=== PATIENT | male | born 1940 | race Caucasian/White ===

== ENCOUNTER 2022-01-31 20:38 | Inpatient (IN) | payer MEDICARE ==
[~2022-01-31] VITALS: Ht 175.3 cm; Wt 95.3 kg
--- NOTE | 2022-01-31 20:40 | NUR ---
Dr Ferrera at bedside, MSE in progress
[2022-01-31 21:51] LABS: HEMATOCRIT 42.5 % (36.7-47.1); MEAN CORPUSCULAR HEMOGLOBIN 27.9 uug (23.8-33.4); MEAN CORPUSCULAR VOLUME 86.4 fL (73.0-96.2); PLATELET COUNT (AUTO) 200 K/uL (152-348)
[2022-01-31 22:28] LABS: ALANINE AMINOTRANSFERASE 32 U/L (16-63); ALKALINE PHOSPHATASE 72 U/L (50-136); ASPARTATE AMINOTRANSFERASE 17 U/L (15-37); BILIRUBIN,DIRECT 0.1 mg/dL (0.0-0.2); BILIRUBIN,TOTAL 0.5 mg/dL (0.2-1.0); CARBON DIOXIDE 28 mmol/L (21-32); CHLORIDE 102 mmol/L (98-107); CREATININE 1.1 mg/dL (0.6-1.3); GLUCOSE 130 mg/dL (74-106); LIPASE 72 U/L (73-393); POTASSIUM 3.9 mmol/L (3.5-5.1); TOTAL PROTEIN, SERUM 7.4 g/dL (6.4-8.2); UREA NITROGEN, BLOOD 19 mg/dL (7-18)
[2022-02-01 00:56] LABS: ABG BASE EXCESS -0.3 mmol/L; ABG HCO3 23.9 mmol/L; ABG PCO2 37.6 mmHg (35.0-45.0); ABG PH 7.421 (7.350-7.450); ABG PO2 77.3 mmHg (75.0-100.0); ABG SITE RIGHT RADIAL; ABG TOTAL HEMOGLOBIN 14.2 G/dL (13.5-18.0); MetHb 0.1 % (0.0-1.5); VENT MODE BIPAP
[2022-02-01] MEDS ORDERED: OSELTAMIVIR PHOSPHATE 75 MG CAPSULE PO ONE (01:00)
[2022-02-01] MEDS ORDERED: ONDANSETRON 4 MG/2 ML VIAL IV PRN (01:00)
[2022-02-01] MEDS ORDERED: MORPHINE SULFATE 2 MG/1 ML DISP.SYRIN IV PRN (01:00)
[2022-02-01] MEDS ORDERED: ALBUTEROL SULFATE 8 GM HFA.AER.AD IH PRN (01:00)
[2022-02-01] MEDS ORDERED: hydrALAZINE HCL 20 MG/1 ML VIAL IV PRN (01:00)
[2022-02-01] MEDS ORDERED: ACETAMINOPHEN 325 MG TABLET PO PRN (01:00)
[2022-02-01] MEDS ORDERED: methylPREDNISolone SOD SUCC 125 MG/2 ML VIAL ONE (03:13)
[2022-02-01] MEDS ORDERED: methylPREDNISolone SOD SUCC 125 MG/2 ML VIAL IV ONE (03:15)
[2022-02-01] MEDS ORDERED: ALBUTEROL SULFATE 2.5 MG/3 ML NEBU NEB ONE ×2 (03:15→03:45)
[2022-02-01] MEDS ORDERED: IPRATROPIUM BROMIDE 0.5 MG/2.5 ML NEBU NEB ONE ×2 (03:15→03:45)
[2022-02-01] MEDS ORDERED: ALBUTEROL SULFATE 2.5 MG/3 ML NEBU NEB PRN (05:30)
--- NOTE | 2022-02-01 07:00 | NUR ---
RECEIVED PATIENT ON O2 AT 3L NC SATURATING 93-95% NO SS OF DISTRESS. FIB FLUTER ON MONITOR. CONTINUE WITH TELE MONITORING
--- NOTE | 2022-02-01 07:25 | NUR ---
ADMITTED PT TO ROOM 310; placed on droplet precaution; Bipap in situ per RT; placed on continuous pulse ox and sats 94%; incontinence care done; per DATABASE DESIGN ANALYST, family will bring home meds; MRSA swab done and sent to lab; plan of care initiated; continue to monitor.
[2022-02-01] MEDS: methylPREDNISolone SOD SUCC 40 MG/ML VIAL IV SCH ×2 (08:34→16:36)
[2022-02-01] MEDS: FLUTICASONE/VILANTEROL 1 EACH BLST.W.DEV INH SCH (08:38)
[2022-02-01] MEDS: OSELTAMIVIR PHOSPHATE 75 MG CAPSULE PO SCH ×2 (08:38→16:36)
[2022-02-01] MEDS ORDERED: HEPARIN SODIUM,PORCINE 5,000 UNITS/ML VIAL SQ SCH (09:00)
[2022-02-01] MEDS ORDERED: DONE10TA11 PO (10:12)
[2022-02-01] MEDS ORDERED: FURO-152 PO ×2 (10:12→10:21)
[2022-02-01] MEDS ORDERED: ROSU10TA2 PO (10:12)
[2022-02-01] MEDS ORDERED: METO100T7 PO (10:12)
[2022-02-01] MEDS ORDERED: UBID100C13 PO (10:12)
[2022-02-01] MEDS ORDERED: DUTA0.5C PO (10:12)
[2022-02-01] MEDS ORDERED: APIX5TAB PO (10:12)
[2022-02-01] MEDS ORDERED: BENA40TA8 PO (10:12)
[2022-02-01] MEDS ORDERED: CHOL200013 PO (10:15)
[2022-02-01] MEDS ORDERED: SERT100T PO (10:15)
[2022-02-01] MEDS ORDERED: SPIR25TA PO (10:15)
[2022-02-01] MEDS ORDERED: TAMS-3 PO (10:15)
[2022-02-01] MEDS ORDERED: ACET-2154 PO (10:18)
[2022-02-01] MEDS ORDERED: TRAZ-182 PO (10:18)
[2022-02-01] MEDS ORDERED: CICL15CR12 TP (10:18)
[2022-02-01] MEDS ORDERED: POTA-10 PO (10:18)
[2022-02-01] MEDS ORDERED: PHEN26CR2 RC (10:21)
[2022-02-01] MEDS ORDERED: LOPE2CAP PO (10:21)
[2022-02-01] MEDS ORDERED: ACET-73 PO (10:21)
[2022-02-01] MEDS ORDERED: NEOM1OIN19 TP (10:23)
[2022-02-01] MEDS ORDERED: GUAI-755 PO (10:23)
[2022-02-01] MEDS ORDERED: PROP10DR2 OP (10:23)
[2022-02-01 11:31] VITALS: BP 152/77
--- NOTE | 2022-02-01 12:00 | NUR ---
NO ACUTE CHANGE FROM MORNING ASSESSMENT
[2022-02-01] MEDS: FUROSEMIDE 20 MG TABLET PO SCH (12:28)
[2022-02-01] MEDS: CHOLECALCIFEROL 1,000 UNIT TABLET PO SCH (12:28)
[2022-02-01] MEDS: TAMSULOSIN HCL 0.4 MG CAP.SR.24H PO SCH (12:28)
[2022-02-01] MEDS: SERTRALINE HCL 100 MG TABLET PO SCH (12:28)
[2022-02-01] MEDS: SPIRONOLACTONE 25 MG TABLET PO SCH (12:28)
[2022-02-01] MEDS: DONEPEZIL 10 MG TABLET PO SCH (12:28)
[2022-02-01] MEDS: BENAZEPRIL HCL 20 MG TABLET PO SCH (12:28)
[2022-02-01] MEDS: DUTASTERIDE 0.5 MG CAPSULE PO SCH (12:28)
[2022-02-01] MEDS: APIXABAN 5 MG TABLET PO SCH ×2 (12:29→16:37)
[2022-02-01] MEDS: GLUCERNA SHAKE 237 ML CAN PO SCH ×2 (12:29→16:38)
[2022-02-01] MEDS: METOPROLOL SUCCINATE XL 50 MG TAB.SR.24H PO SCH (12:46)
--- NOTE | 2022-02-01 13:42 | NUR ---
WOUND CARE CONSULT: REVIEWED CHART, NURSING DOCUMENTATION AND PHOTO WHICH INDICATES SACRAL INTACT DEEP TISSUE INJURY AND RASH TO INNER BUTTOCKS, PRESENT ON ADMISSION. RECOMMENDATIONS MADE FOR SKIN PROTECTION. DISCUSSED WITH NURSING STAFF. MD IN AGREEMENT WITH PLAN OF CARE.
[2022-02-01] MEDS ORDERED: REMEDY ESSENTIAL ZINC PASTE 113 GM TOP PRN (13:45)
[2022-02-01] MEDS: CLOTRIMAZOLE 1% CREAM 30 GM TUBE TOP SCH (16:36)
[2022-02-01 16:38] VITALS: BP 145/80
[2022-02-01] MEDS: ARGININE/GLUTAMINE/CALCIUM BMB 1 EACH POWD.PACK PO SCH (16:38)
--- NOTE | 2022-02-01 17:35 | NUR ---
PATIENT TOLERATING O2 AT 3L NC SATURATING 95%, NO SS OF ACUTE RESPIRATORY DISTRESS. REMAINS FIB FLUTTER ON MONITOR
[2022-02-01] MEDS ORDERED: OLANZAPINE 10 MG VIAL IM ONE (20:15)
[2022-02-01 20:22] VITALS: BP 147/76
[2022-02-01] MEDS ORDERED: TRAZODONE 50 MG TABLET PO PRN (21:00)
[2022-02-01] MEDS: ATORVASTATIN 20 MG TABLET PO SCH (21:20)
[2022-02-01] MEDS: QUETIAPINE FUMARATE 25 MG TABLET PO PRN (22:45)
[2022-02-02] VITALS: BP 144/75
[2022-02-02] MEDS: methylPREDNISolone SOD SUCC 40 MG/ML VIAL IV SCH ×2 (01:00→09:00)
--- NOTE | 2022-02-02 01:00 | NUR ---
Pt confused, agitated and uncooperative. Pulls out tele box. Pulled out IV and refused reinsertion. Solu-Medrol non administered due to no IV access. aware.
--- NOTE | 2022-02-02 01:10 | NUR ---
Pt transferred on the [place] chair for safety. Refused to be repositioned. Pt scraped his left inner leg on the side of the leg rest which caused some bleeding. Cleaned site with NS and covered with mepilex. Will refer for wound consult. Will continue to monitor. All needs attended.
[2022-02-02 04:02] VITALS: BP 116/72
[2022-02-02] MEDS: QUETIAPINE FUMARATE 25 MG TABLET PO PRN (04:57)
--- NOTE | 2022-02-02 05:00 | NUR ---
Pt was aggressive and screaming. Keeps on pulling tele box. Received order for Haldol and Ativan. Per , give Haldol first then after given Ativan after 15 minutes if it doesn't work. Will continue to monitor. Addendum: 02/02/22 at 0648 by SUNNY ALEX RN Haldol given as ordered. Pt has calmed down and sleeping. Ativan not given.
[2022-02-02] MEDS ORDERED: LORAZEPAM 2 MG/1 ML VIAL IM ONE (05:15)
[2022-02-02] MEDS ORDERED: HALOPERIDOL DECANOATE 50 MG/1 ML AMPUL IM ONE (05:15)
[2022-02-02] MEDS ORDERED: HALOPERIDOL LACTATE 5 MG/1 ML VIAL IM ONE ×2 (05:45→06:00)
--- NOTE | 2022-02-02 06:31 | NUR ---
PATIENT REFUSING TO WEAR O2 ON AND OFF AT 2L/M NC, CONFUSED, AND GETS AGITATED AT TIMES, ALSO PT WILL NOT WEAR BI/PAP MACHINE, SUNNY Rich WAS NOTIFIED , SAT WAS 95% ON ROOM AIR .Mame CASTRO RCP Addendum: 02/02/22 at 0633 by PERLITA CASTRO RT Amended: Links added.
[2022-02-02] MEDS ORDERED: CHOLECALCIFEROL 1,000 UNIT TABLET PO SCH (09:00)
[2022-02-02] MEDS ORDERED: Medication Not On Formulary EA (Rosuvastatin Calcium (Crestor) 10 MG) PO SCH (09:00)
[2022-02-02] MEDS ORDERED: Medication Not On Formulary EA (Benazepril Hcl 40 MG) PO SCH (09:00)
[2022-02-02] MEDS: DONEPEZIL 10 MG TABLET PO SCH (09:39)
[2022-02-02] MEDS: TAMSULOSIN HCL 0.4 MG CAP.SR.24H PO SCH (09:39)
[2022-02-02] MEDS: DUTASTERIDE 0.5 MG CAPSULE PO SCH (09:39)
[2022-02-02] MEDS: CHOLECALCIFEROL 1,000 UNIT TABLET PO SCH (09:40)
[2022-02-02] MEDS: FUROSEMIDE 20 MG TABLET PO SCH (09:40)
[2022-02-02] MEDS: SPIRONOLACTONE 25 MG TABLET PO SCH (09:40)
[2022-02-02] MEDS: SERTRALINE HCL 100 MG TABLET PO SCH (09:40)
[2022-02-02] MEDS: METOPROLOL SUCCINATE XL 50 MG TAB.SR.24H PO SCH (09:41)
[2022-02-02] MEDS: BENAZEPRIL HCL 20 MG TABLET PO SCH (09:41)
[2022-02-02] MEDS: APIXABAN 5 MG TABLET PO SCH ×2 (09:42→17:15)
[2022-02-02] MEDS: FLUTICASONE/VILANTEROL 1 EACH BLST.W.DEV INH SCH (09:43)
[2022-02-02] MEDS: OSELTAMIVIR PHOSPHATE 75 MG CAPSULE PO SCH ×2 (09:43→17:14)
[2022-02-02] MEDS: GLUCERNA SHAKE 237 ML CAN PO SCH ×2 (09:56→17:24)
[2022-02-02] MEDS: CLOTRIMAZOLE 1% CREAM 30 GM TUBE TOP SCH ×2 (09:57→17:25)
[2022-02-02] MEDS: ARGININE/GLUTAMINE/CALCIUM BMB 1 EACH POWD.PACK PO SCH ×2 (09:57→17:24)
--- NOTE | 2022-02-02 09:57 | NUR ---
PATIENT HAS NO IV SITE AND IS REFUSING FOR A HEPLOCK TO BE INSERTED SO IV SOLU MEDROL NOT GIVEN
[2022-02-02 10:13] LABS: MEAN CORPUSCULAR HEMOGLOBIN 27.6 uug (23.8-33.4); MEAN CORPUSCULAR VOLUME 86.4 fL (73.0-96.2); PLATELET COUNT (AUTO) 224 K/uL (152-348)
[2022-02-02 10:34] LABS: BILIRUBIN,TOTAL 0.4 mg/dL (0.2-1.0); CREATININE 1.2 mg/dL (0.6-1.3); MAGNESIUM 2.4 mg/dL (1.8-2.4); PHOSPHOROUS 3.7 mg/dL (2.5-4.9); POTASSIUM 3.9 mmol/L (3.5-5.1); TOTAL PROTEIN, SERUM 7.1 g/dL (6.4-8.2)
[2022-02-02 11:57] VITALS: BP 165/101
--- NOTE | 2022-02-02 12:43 | NUR ---
PATIENT IS SITTING ON THE CHAIR FOR SAFETY HE CONSTANTLY PULLS ON TUBING AND GETTING OUT OF BED REFUSES TO HAVE HIS IV REINSERTED AND REFUSES HIS TELEMETRY BLOOD PRESSURE IS 165/[address] AT THIS TIME [address] TAMI JAMES AWARE WITH NO NEW ORDERS IN REGARDS TO THE BLOOD PRESSURE AND STATED TO D/C THE TELE SINCE PATIENT IS REFUSING AND REMOVING WHEN APPLIED.
[2022-02-02 15:48] VITALS: BP 122/68
--- NOTE | 2022-02-02 17:55 | NUR ---
PATIENT HAS NO IV SITE AND REFUSES TO HAVE IV INSERTED DR TAYLOR NOTIFIED WITH NEW ORDERS AND NOTED.
[2022-02-02 20:25] VITALS: BP 132/40
[2022-02-02] MEDS ORDERED: methylPREDNISolone SOD SUCC 40 MG/ML VIAL IV SCH (21:00)
[2022-02-02] MEDS: predniSONE 10 MG TABLET PO SCH (21:03)
[2022-02-02] MEDS: ATORVASTATIN 20 MG TABLET PO SCH (21:03)
[2022-02-03 04:11] VITALS: BP 132/75
[2022-02-03] MEDS: GLUCERNA SHAKE 237 ML CAN PO SCH (08:10)
[2022-02-03] MEDS: CHOLECALCIFEROL 1,000 UNIT TABLET PO SCH (08:36)
[2022-02-03] MEDS: DUTASTERIDE 0.5 MG CAPSULE PO SCH (08:37)
[2022-02-03] MEDS: SERTRALINE HCL 100 MG TABLET PO SCH (08:37)
[2022-02-03] MEDS: predniSONE 10 MG TABLET PO SCH (08:37)
[2022-02-03] MEDS: TAMSULOSIN HCL 0.4 MG CAP.SR.24H PO SCH (08:37)
[2022-02-03] MEDS: FUROSEMIDE 20 MG TABLET PO SCH (08:37)
[2022-02-03] MEDS: DONEPEZIL 10 MG TABLET PO SCH (08:37)
[2022-02-03] MEDS: METOPROLOL SUCCINATE XL 50 MG TAB.SR.24H PO SCH (08:38)
[2022-02-03] MEDS: SPIRONOLACTONE 25 MG TABLET PO SCH (08:39)
[2022-02-03] MEDS: FLUTICASONE/VILANTEROL 1 EACH BLST.W.DEV INH SCH (08:41)
[2022-02-03] MEDS: APIXABAN 5 MG TABLET PO SCH (08:42)
[2022-02-03] MEDS: OSELTAMIVIR PHOSPHATE 75 MG CAPSULE PO SCH (08:51)
[2022-02-03] MEDS: BENAZEPRIL HCL 20 MG TABLET PO SCH (08:51)
[2022-02-03] MEDS: ARGININE/GLUTAMINE/CALCIUM BMB 1 EACH POWD.PACK PO SCH (08:52)
[2022-02-03] MEDS: CLOTRIMAZOLE 1% CREAM 30 GM TUBE TOP SCH (08:53)
[2022-02-03 11:42] VITALS: BP 128/71
[2022-02-03] MEDS ORDERED: PRED20TA PO (13:15)
[2022-02-03] MEDS ORDERED: ALBU18HF2 INH (13:15)
[2022-02-03] MEDS ORDERED: OSEL75CA18 PO (13:15)
--- NOTE | 2022-02-03 14:00 | NUR ---
Patient combative when nurse tried to inspect excoriation of buttocks, perineum and legs. Refusing to allow photos taken for discharge. All areas improved and some resolved since admition. Left sitting in helena chair.
--- NOTE | 2022-02-03 15:00 | NUR ---
PATIENT DISCHARGED ORDERED TO [facility] IN SATISFACTORY CONDITION HE HAS NO IV SITE AT THIS TIME.
== END 2022-02-03 15:00 | DRG 193 ==
LOC: ER 20:38 → TELE3 23:55 → MEDSURG3 02-02 13:03
PROVIDERS: ADMIT Nurse Practitioner Family; ATTEND Nurse Practitioner Family
PROC: 5A09357 Assistance with Respiratory Ventilation, Less than 24 Consecutive Hours, Continuous Positive Airway Pressure (ICD-10-PCS; principal; 2022-01-31)
DX: J10.1 Influenza due to other identified influenza virus with other respiratory manifestations (principal); G93.41 Metabolic encephalopathy; J96.01 Acute respiratory failure with hypoxia; I48.92 Unspecified atrial flutter; J44.1 Chronic obstructive pulmonary disease with (acute) exacerbation; I50.32 Chronic diastolic (congestive) heart failure; F05 Delirium due to known physiological condition; J10.00 Influenza due to other identified influenza virus with unspecified type of pneumonia; E66.9 Obesity, unspecified; I48.91 Unspecified atrial fibrillation; I25.10 Atherosclerotic heart disease of native coronary artery without angina pectoris; Z68.31 Body mass index [BMI] 31.0-31.9, adult; F03.90 Unspecified dementia, unspecified severity, without behavioral disturbance, psychotic disturbance, mood disturbance, and anxiety; Z20.822 Contact with and (suspected) exposure to COVID-19
CPT/HCPCS: 36415; 36600; 71045; 83605; 83690; 83735; 84100; 84484; 85025; 87040; 87400; 93005; 94660; A4663; A6209; G0378; J1630; J1631; J1644; J2358; J2920; J2930; J3590; J7512